=== PATIENT | male | born 1960 | race Caucasian/White ===

== ENCOUNTER → 2017-03-01 | Outpatient (CLI) | payer OTHER ==
[~2017-03-01] MED LIST: ALBU0.63 INH; ALBU17IN INH; ASPI81TA60 PO; ATOR40TA PO; CARV3.12 PO; CELE-19 PO; EPIP0.3I2 IM; FLUT11IN INH; NORC10TA2 PO; OMEP40CA2 PO; OXYC-299 PO; PROA1AER NEB; SOMA350T PO
--- NOTE | 2017-03-01 14:15 | REP ---
CHEST, TWO VIEWS: Two views of the chest are performed. There is poor ventilation. There is no change since prior study of 07/14/2015. There is mild diffuse stable interstitial fibrosis. No acute infiltrate is seen. Cardiac silhouette appears magnified by poor inspiration. Mediastinal silhouette is unchanged. There are mild degenerative changes of the spine. IMPRESSION: Stable mild interstitial fibrosis with no acute infiltrate. Signed by Yonatan Mcneil MD 03/01/2017 02:29 P
== END ==
LOC: M SMT 13:03
PROVIDERS: ATTEND Internal Medicine Pulmonary Disease
DX: J45.40 Moderate persistent asthma, uncomplicated (principal)

== ENCOUNTER → 2017-09-20 | Outpatient (CLI) | payer OTHER ==
[~2017-09-20] MED LIST changes: +ARNU1INH3 IN; -ATOR40TA PO; +ATOR40TA75 PO; -CELE-19 PO; +CELE1CAP4 PO; -NORC10TA2 PO; +NORC10TA21 PO; +OXYC-141 PO; -OXYC-299 PO; -PROA1AER NEB; +PROAAER10 NEB; +VENL75CA2 PO
[2017-09-20 10:30] LABS: MEAN CORPUSCULAR HEMOGLOBIN 31.6 pg (27.0-33.0); MEAN CORPUSCULAR VOLUME 92.8 fl (80.0-96.0); PLATELET COUNT, AUTOMATED 239 10^3/uL (150-450); RED CELL DISTRIBUTION WIDTH 12.6 % (11.5-14.5); WHITE BLOOD COUNT 10.4 10^3/uL (4.0-10.0)
[2017-09-20 10:55] LABS: ALBUMIN 3.7 GM/DL (3.2-5.2); ALBUMIN/GLOBULIN RATIO 1.19 (1.00-1.93); ALKALINE PHOSPHATASE 92 U/L (45-117); ALT/SGPT 28 U/L (12-78); ANION GAP 6 MEQ/L (8-16); AST/SGOT 18 U/L (7-37); BILIRUBIN,DIRECT 0.1 MG/DL (0.0-0.2); BILIRUBIN,TOTAL 0.4 MG/DL (0.2-1.0); BLOOD UREA NITROGEN 14 MG/DL (7-18); CARBON DIOXIDE LEVEL 30 MEQ/L (21-32); CHLORIDE LEVEL 107 MEQ/L (98-107); CREATININE FOR GFR 1.04 MG/DL (0.70-1.30); GLOMERULAR FILTRATION RATE > 60.0 (>56); GLUCOSE, FASTING 115 MG/DL (70-105); POTASSIUM SERUM 3.9 MEQ/L (3.5-5.1); SODIUM LEVEL 143 MEQ/L (136-145); TOTAL PROTEIN 6.8 GM/DL (6.4-8.2)
== END ==
LOC: M LAB 09:58
PROVIDERS: ATTEND Internal Medicine Gastroenterology
DX: K21.9 Gastro-esophageal reflux disease without esophagitis (principal)

== ENCOUNTER 2017-09-25 10:35 | Day surgery (SDC) | payer OTHER ==
[~2017-09-25] VITALS: Ht 175.3 cm; Wt 90.3 kg
[2017-09-25] MEDS ORDERED: NS 1,000 ML IV ONE (11:15)
[2017-09-25] MEDS ORDERED: LIDOCAINE 2% INJ 100 MG/5 ML SDV (FOR ANES.) As Ordered ONE (11:22)
[2017-09-25] MEDS ORDERED: PROPOFOL 200 MG/20 ML VIAL As Ordered ONE ×2 (11:22→13:01)
--- NOTE | 2017-09-25 11:25 | ROOR ---
Patient Name: Carlitos Degroot Procedure Date: 09/25/2017 11:10 AM Date of : 1960 Age: 57 Room: [facility] Gender: Male Note Status: Finalized Procedure: Upper Endoscopy + Biopsies Indications: Heartburn, Exclusion of Morales's esophagus Providers: Ellis Avendano MD Referring MD: Hanh García Requesting Provider: Medicines: Monitored Anesthesia Care Complications: No immediate complications. Procedure: Pre-Anesthesia Assessment: - The heart rate, respiratory rate, oxygen saturations, blood pressure, adequacy of pulmonary ventilation, and response to care were monitored throughout the procedure. The Endoscope was introduced through the mouth, and advanced to the second part of duodenum. The upper GI endoscopy was accomplished without difficulty. The patient tolerated the procedure well. Findings: The Z-line was irregular and was found 40 cm from the incisors. Multiple biopsies were obtained with cold forceps for evaluation to rule out Morales's Esophagus randomly at the gastroesophageal junction. A small hiatal hernia was present. No other significant abnormalities were identified in a careful examination of the stomach. The exam of the duodenum was otherwise normal. Impression: - Z-line irregular, 40 cm from the incisors. - Small hiatal hernia. - Multiple biopsies were obtained at the gastroesophageal junction. - The examination was otherwise normal. Recommendation: - Patient has a contact number available for emergencies. The signs and symptoms of potential delayed complications were discussed with the patient. Return to normal activities tomorrow. Written discharge instructions were provided to the patient. - High fiber diet. - Discharge patient to home. - Follow an antireflux regimen. - Continue present medications. - Await pathology results. - Telephone GI clinic for pathology results in 1 week. - Check Portal Online for Path Results.([email or web address] - The findings and recommendations were discussed with the patient's family. Ellis Avendano MD Ellis Avendano MD 09/25/2017 11:25:43 AM This report has been signed electronically. Number of Addenda: 0 Note Initiated On: 09/25/2017 11:10 AM Estimated Blood Loss: Estimated blood loss: none.
--- NOTE | 2017-09-25 11:44 | ROOR ---
Patient Name: Carlitos Degroot Procedure Date: 09/25/2017 11:11 AM Date of : 1960 Age: 57 Room: [facility] Gender: Male Note Status: Finalized Procedure: Total Colonoscopy to cecum + Biopsy Polypectomy Indications: High risk colon cancer surveillance: Personal history of colonic polyps, Last colonoscopy: 2011 Providers: Ellis Avendano MD Referring MD: Hanh García Requesting Provider: Medicines: Monitored Anesthesia Care Complications: No immediate complications. Procedure: Pre-Anesthesia Assessment: - The heart rate, respiratory rate, oxygen saturations, blood pressure, adequacy of pulmonary ventilation, and response to care were monitored throughout the procedure. The Colonoscope was introduced through the anus and advanced to the cecum, identified by appendiceal orifice and ileocecal valve. The colonoscopy was performed without difficulty. The patient tolerated the procedure well. The quality of the bowel preparation was good. Findings: The perianal and digital rectal examinations were normal. Non-bleeding internal hemorrhoids were found during retroflexion. The hemorrhoids were small and Grade I (internal hemorrhoids that do not prolapse). Scattered small-mouthed diverticula were found in the recto-sigmoid colon, sigmoid colon and descending colon. A small polyp was found in the ascending colon. The polyp was sessile. The polyp was removed with a jumbo cold forceps. Resection and retrieval were complete. The exam was otherwise without abnormality on direct and retroflexion views. Impression: - Non-bleeding internal hemorrhoids. - Diverticulosis in the recto-sigmoid colon, in the sigmoid colon and in the descending colon. - One small polyp in the ascending colon, removed with a jumbo cold forceps. Resected and retrieved. - The examination was otherwise normal on direct and retroflexion views. - The exam was otherwise normal to the cecum. Recommendation: - Patient has a contact number available for emergencies. The signs and symptoms of potential delayed complications were discussed with the patient. Return to normal activities tomorrow. Written discharge instructions were provided to the patient. - High fiber diet. - Discharge patient to home. - Continue present medications. - Await pathology results. - Telephone GI clinic for pathology results in 1 week. - Repeat colonoscopy in 5 years for surveillance based on pathology results. - Return to referring physician. - The findings and recommendations were discussed with the patient's family. Ellis Avendano MD Ellis Avendano MD 09/25/2017 11:44:04 AM This report has been signed electronically. Number of Addenda: 0 Note Initiated On: 09/25/2017 11:11 AM Estimated Blood Loss: Estimated blood loss: none.
[2017-09-25 12:24] VITALS: BP 133/82
== END 2017-09-25 12:25 | disposition home or self-care (01) ==
LOC: M OPP 10:35
PROVIDERS: ATTEND Internal Medicine Gastroenterology
DX: Z12.11 Encounter for screening for malignant neoplasm of colon (principal); Z86.010 Personal history of colon polyps; D12.2 Benign neoplasm of ascending colon; K64.0 First degree hemorrhoids; K57.30 Diverticulosis of large intestine without perforation or abscess without bleeding; R12 Heartburn; K22.8 Other specified diseases of esophagus; K44.9 Diaphragmatic hernia without obstruction or gangrene; K75.81 Nonalcoholic steatohepatitis (NASH); R00.8 Other abnormalities of heart beat; I20.9 Angina pectoris, unspecified; I10 Essential (primary) hypertension; E78.5 Hyperlipidemia, unspecified; K21.9 Gastro-esophageal reflux disease without esophagitis; K76.0 Fatty (change of) liver, not elsewhere classified; M19.90 Unspecified osteoarthritis, unspecified site; M54.9 Dorsalgia, unspecified; Z98.1 Arthrodesis status; R06.2 Wheezing; J45.909 Unspecified asthma, uncomplicated; J44.9 Chronic obstructive pulmonary disease, unspecified; R06.83 Snoring; F17.210 Nicotine dependence, cigarettes, uncomplicated; Z91.030 Bee allergy status; Z79.82 Long term (current) use of aspirin; Z79.899 Other long term (current) drug therapy; Z80.9 Family history of malignant neoplasm, unspecified

== ENCOUNTER → 2019-01-08 | Outpatient (REF) | payer OTHER ==
[2019-01-08 19:29] LABS: C REACTIVE PROTEIN QUANTITATIV 0.33 MG/DL (0.00-0.30); RHEUMATOID FACTOR QUANT < 10.0 IU/ML (<15.0)
== END ==
LOC: M SFHCPLAZ 11:51
PROVIDERS: ATTEND Internal Medicine Rheumatology
DX: M25.539 Pain in unspecified wrist (principal); M25.519 Pain in unspecified shoulder

== ENCOUNTER → 2019-01-08 | Outpatient (CLI) | payer OTHER ==
--- NOTE | 2019-01-09 03:30 | REP ---
Clinical: Bilateral wrist pain. Technique: AP, lateral, bilateral oblique views of the right and left wrist. Findings: Right wrist demonstrates moderate/early advanced subchondral sclerosis with cortical irregularity and joint space narrowing at the radiocarpal joint line. Increased sclerosis and joint space narrowing at second through fifth carpometacarpal joints also identified with subtle areas of cortical irregularity. Sclerosis with subtle spurring, joint space narrowing and subchondral heterogeneity also identified at the first carpometacarpal joint. Left wrist demonstrates early advanced subchondral sclerosis with heterogeneity and subtle subchondral cystic changes along the radiocarpal joint line and associated joint space narrowing. Increased sclerosis and joint space narrowing at second through fifth carpometacarpal joints also identified with subtle areas of cortical irregularity. Sclerosis with subtle spurring, joint space narrowing and subchondral heterogeneity also identified at the first carpometacarpal joint. Impression: Moderate/early advanced osteoarthritic degenerative changes primarily noted along the radiocarpal joint and first carpometacarpal joints (left greater than right). Electronically Signed by Jon Duff MD 01/09/2019 03:21 A
--- NOTE | 2019-01-09 03:33 | REP ---
Clinical: Bilateral shoulder pain. Technique: Internal rotation, external rotation, and Y view of the left and right shoulder. Findings: Right shoulder demonstrates cortical irregularity and moderate inferior spurring at the acromioclavicular joint. Subacromial space measures 10 mm. Blunting to the ossified glenoid rim noted. Humeral head appears intact. Left shoulder demonstrates moderate cortical irregularity at the acromioclavicular joint with a well corticated free fragment along the superior tip of the clavicle. Subacromial space measures 10 mm. Ossified glenoid rim appears relatively normal for age. The humeral head appears intact. Impression: Degenerative changes involving the bilateral acromioclavicular joints along with possible old injury involving the distal aspect of the left clavicle. Electronically Signed by Jon Duff MD 01/09/2019 03:25 A
== END ==
LOC: M SMT 12:04
PROVIDERS: ATTEND Internal Medicine Rheumatology
DX: M19.031 Primary osteoarthritis, right wrist (principal); M19.032 Primary osteoarthritis, left wrist; M19.011 Primary osteoarthritis, right shoulder; M19.012 Primary osteoarthritis, left shoulder

== ENCOUNTER → 2023-01-20 | Outpatient (CLI) | payer OTHER ==
[~2023-01-20] MED LIST changes: -NORC10TA21 PO; +NORC1TAB5 PO; -OMEP40CA2 PO; +OMEP40CA4 PO
== END ==
LOC: M PLAIMG 11:40
PROVIDERS: ATTEND Internal Medicine Pulmonary Disease
DX: J45.40 Moderate persistent asthma, uncomplicated (principal)

== ENCOUNTER → 2023-02-03 | Outpatient (CLI) | payer OTHER | LOC: M PLAIMG 13:17 | PROVIDERS: ATTEND Internal Medicine Pulmonary Disease | DX: R91.8 Other nonspecific abnormal finding of lung field (principal) ==

== ENCOUNTER → 2024-07-12 | Outpatient (CLI) | payer OTHER | LOC: M RAD 13:11 | PROVIDERS: ATTEND Internal Medicine Pulmonary Disease | DX: R91.8 Other nonspecific abnormal finding of lung field (principal) ==